=== PATIENT | male | born 1990 | race Caucasian/White ===

== ENCOUNTER 2022-05-06 11:11 | Emergency (ER) | payer OTHER ==
[2022-05-06 12:08] LABS: HEMOGLOBIN 13.7 gm/dl (14.0-17.5); RED BLOOD COUNT 4.7 M/UL (4.20-5.50); WHITE BLOOD COUNT 11.5 K/UL (4.5-11.0)
[2022-05-06 12:47] LABS: BUN/CREATININE RATIO 14 (0-10)
== END 2022-05-06 18:17 | disposition home or self-care (01) ==
LOC: ER1 11:11
PROVIDERS: Physician Assistant
DX: K52.9 Noninfective gastroenteritis and colitis, unspecified (principal); I88.0 Nonspecific mesenteric lymphadenitis; M54.9 Dorsalgia, unspecified; R74.8 Abnormal levels of other serum enzymes; R82.1 Myoglobinuria
CPT/HCPCS: 80053; 81001; 82272; 82550; 82553; 83690; 83874; 85025; 86140; 87086; 96361; 96374; 99284; J1885; Q9967